=== PATIENT | female | born 1945 | race Hispanic/Latino ===

== ENCOUNTER → 2018-05-11 | Outpatient (CLI) | payer OTHER | END | disposition home or self-care (01) | LOC: RAH 08:37 | PROVIDERS: ATTEND Family Medicine | DX: Z12.31 Encounter for screening mammogram for malignant neoplasm of breast (principal) | CPT/HCPCS: 77067 ==

== ENCOUNTER → 2018-07-21 | Outpatient (CLI) | payer OTHER | END | disposition home or self-care (01) | LOC: RAH 13:46 | PROVIDERS: ATTEND Family Medicine | DX: R55 Syncope and collapse (principal) | CPT/HCPCS: 93880 ==

== ENCOUNTER → 2020-02-16 | Outpatient (CLI) | payer OTHER | END | disposition home or self-care (01) | LOC: RAH 08:28 | PROVIDERS: ATTEND Family Medicine | DX: Z12.31 Encounter for screening mammogram for malignant neoplasm of breast (principal) | CPT/HCPCS: 77067 ==

== ENCOUNTER → 2021-08-03 | Outpatient (CLI) | payer OTHER | END | disposition home or self-care (01) | LOC: RAH 11:20 | PROVIDERS: ATTEND Family Medicine | DX: Z12.31 Encounter for screening mammogram for malignant neoplasm of breast (principal) | CPT/HCPCS: 77067 ==

== ENCOUNTER → 2022-12-16 | Outpatient (CLI) | payer OTHER | END | disposition home or self-care (01) | LOC: RAH 11:34 | PROVIDERS: ATTEND Family Medicine | DX: Z12.31 Encounter for screening mammogram for malignant neoplasm of breast (principal) | CPT/HCPCS: 77067 ==

== ENCOUNTER → 2023-12-30 | Outpatient (CLI) | payer OTHER | END | disposition home or self-care (01) | LOC: RAH 10:37 | PROVIDERS: ATTEND Family Medicine | DX: Z12.31 Encounter for screening mammogram for malignant neoplasm of breast (principal); R92.333 Mammographic heterogeneous density, bilateral breasts | CPT/HCPCS: 77067 ==

== ENCOUNTER 2024-08-02 18:57 | Observation (INO) | payer OTHER ==
[~2024-08-02] VITALS: Ht 157.5 cm; Wt 54.1 kg
--- NOTE | 2024-08-02 19:46 | HMCIMG ---
Exam Type: CT HEAD/BRAIN W/O CONTRAST Clinical Information: ams Comparison: None CT Dose Index (CTDI): 57.33 mGy Dose Length Product (DLP): 956.79 total mGy-cm Findings: The examination shows atrophy. There is low attenuation throughout the periventricular white matter locations, consistent with chronic small vessel ischemic changes. No acute intra- or extra-axial fluid collections are seen. There is no evidence of acute or chronic hemorrhage. There is no mass effect or shift of midline structures. There are no areas to suggest acute infarct. The skull windows show no significant abnormalities. IMPRESSION: 1. ATROPHY AND CHRONIC SMALL VESSEL ISCHEMIC CHANGES. This study was performed using dose reduction techniques to include automated exposure control and/or adjustment of the mA and/or kV according to patient size.
--- NOTE | 2024-08-02 20:07 | HMCIMG ---
Exam Type: CHEST 1VW Clinical Information: cp Comparison: None Findings: The lungs are clear of infiltrates. The heart is normal in size. The bony and soft tissue structures of the chest are unremarkable. Impression: Clear lungs.
[2024-08-02] MEDS: 0.9%NACL 1000ML 1,000 ML IV ONE (20:09)
--- NOTE | 2024-08-02 20:33 | ERN ---
General Chief Complaint: Syncope Stated Complaint: SYNCOPAL EPISODE Time Seen by MD: 19:06 Time Seen by Midlevel: 19:06 Source: patient History of Present Illness Initial Comments The patient is a 78-year-old female with a past medical history of hypertension and hyperlipidemia presenting to the emergency department via EMS following a syncopal episode. Least syncopal episode occurred 90 minutes prior to arrival. According to who is at bedside the episode lasted approximately 30 minutes. After the patient regained consciousness she was confused. No seizure-like activities reported. No history of seizures is reported. On arrival the patient's main complaint is generalized body weakness. Allergies: Coded Allergies: No Known Drug Allergies (Unverified Allergy, Unknown, 08/02/24) Past Medical History Past Medical History: Arthritis, High Cholesterol, Hypertension Medical History Other: FAINTING SPELLS Past Surgical History: None ROS Dictation CONSTITUTIONAL: Negative except for HPI HEAD/FACE: Negative except for HPI EENT: Negative except for HPI RESPIRATORY: Negative except for HPI GASTROINTESTINAL/ABDOMINAL: Negative except for HPI GENITOURINARY: Negative except for HPI MUSCULOSKELETAL: Negative except for HPI INTEGUMENTARY: Negative except for HPI NEUROLOGICAL/PSYCH: Negative except for HPI HEMATOLOGIC/LYMPHATIC: Negative except for HPI All Systems Negative, Except as noted above. 13 point review of systems assessed and all negative except for above. Physical Exam Physical Exam Dictation Vital Signs reviewed General Appearance: Alert, oriented x 3, no acute distress, well developed, nourished. Head and Face: non-traumatic. Eyes: PERRL, pink conjunctivas, eyelid no trauma, anterior chamber with arcus senilis. Ears: Pinnas intact and no signs of trauma or erythema ear canals clear and no discharge TM no erythema Nose: No discharge, no bleeding. Oropharynx: Mouth normal, tongue pink, pharynx clear,no erythema, tonsils no exudates, no abscesses noted, mucous membrane moist Neck: Supple, non-tender, no thyromegaly, no masses, no JVD, no bruits Breast:Deferred Chest:No tenderness, no crepitus, no paradoxical movement, no retractions Lungs:Clear, well-ventilated, symmetric, no rales, no wheezing, no rhonchi, no stridor, good breath sounds bilaterally Heart: Regular rate, regular rhythm, no murmur, no gallops Vascular: no peripheral edema, Abdomen: Soft, positive bowel sounds, nondistended, no guarding, nontender, no rebound, no masses no hepatomegaly, no splenomegaly, no Everett's sign, no hernias. Rectal: Deferred Genital: Deferred Neurological: Normal speech, motor function intact, sensory function intact Musculoskeletal: Neck nontender, full range of motion, back nontender, full range of motion, Extremities: nontender, full range of motion Skin: Color pink, dry, no turgor, no rash, no lacerations, no abrasions, no contusions. Lymphatic: Deferred Results Laboratory and Microbiology Labs Reviewed?: Yes MDM MDM: Differential diagnosis: Syncope, ACS, intracranial bleed, seizure, dehydration Rationale: Tests considered and ordered secondary to shared decision making include: Previous outside records reviewed: Old ER visits. Risk of complication and/or morbidity or mortality of patient management: None Medications-Per medication reconciliation Need for hospitalization: Patient does meet criteria for hospitalization. Need for emergency major/minor surgery: No There are no social concerns with this patient. Prescription drug management Prescriptions will include symptomatic care Patient's prior external medical records from other ER visits were reviewed by me as indicated. Prior testing and results from previous visits were reviewed. Prior tests were taken into account with medical decision making and resource utilization, independent historian/historians were used to obtain complete medical history. I independently interpreted the test that were performed, results were reviewed by me and considered findings on radiology if ordered. Medical management and examination interpretation discussions were had by me with other qualified healthcare professionals as indicated for the patient's care. ED Course [place] [id number] [place] [id number] IMAGING REPORT Signed PATIENT: OSIRIS MARTIN MR#: [id number] : 1945 SEX: F AGE: 78 LOCATION: [facility] ORDER 09 STATUS: [facility] ER REPORT#: [id number] SERVICE 08 REASON: ams ORDERING PHYSICIAN: NEGRO MCFADDEN PROCEDURE: HEAD WO - CT HEAD/BRAIN W/O CONTRAST Exam Type: CT HEAD/BRAIN W/O CONTRAST Clinical Information: ams Comparison: None CT Dose Index (CTDI): 57.33 mGy Dose Length Product (DLP): 956.79 total mGy-cm Findings: The examination shows atrophy. There is low attenuation throughout the periventricular white matter locations, consistent with chronic small vessel ischemic changes. No acute intra- or extra-axial fluid collections are seen. There is no evidence of acute or chronic hemorrhage. There is no mass effect or shift of midline structures. There are no areas to suggest acute infarct. The skull windows show no significant abnormalities. IMPRESSION: 1. ATROPHY AND CHRONIC SMALL VESSEL ISCHEMIC CHANGES. This study was performed using dose reduction techniques to include automated exposure control and/or adjustment of the mA and/or kV according to patient size. DICTATED BY: ENEIDA BURKETT MD DATE: 08/02/241942 ELECTRONICALLY SIGNED BY: ENEIDA BURKETT MD DATE: 08/02/241945 [address] [address] IMAGING REPORT Signed PATIENT: OSIRIS MARTIN MR#: [id number] : 1945 SEX: F AGE: 78 LOCATION: [facility] ORDER 09 STATUS: [facility] REPORT#: [id number] SERVICE 08 REASON: cp ORDERING PHYSICIAN: NEGRO MCFADDEN PROCEDURE: CXR1VW - CHEST 1VW Exam Type: CHEST 1VW Clinical Information: cp Comparison: None Findings: The lungs are clear of infiltrates. The heart is normal in size. The bony and soft tissue structures of the chest are unremarkable. Impression: Clear lungs. DICTATED BY: ENEIDA BURKETT MD DATE: 08/02/242001 ELECTRONICALLY SIGNED BY: ENEIDA BURKETT MD DATE: 08/02/242006 DX & DISP Disposition: Inpatient Departure Impression: Primary Impression: Syncope and collapse Condition: Stable Referrals: ADRIAN ALMODOVAR MD (PCP) I have reviewed the case, and I agree with, Diagnosis and Plan I performed the substantive portion of the visit. I have reviewed and personally made and approve the management plan that is documented in the note by myself or the SIL. I acknowledge for responsibility for the patient's management plan. NEGRO MCFADDEN Aug 02, 2024 20:33
[2024-08-02 20:36] LABS: BASOPHILS # (AUTO) 0.02 K/uL (0.00-0.20); BASOPHILS % (AUTO) 0.2 % (0.0-5.0); EOSINOPHILS # (AUTO) 0.11 K/uL (0.00-0.70); HEMATOCRIT 39.4 % (36-48); IMMATURE GRANULOCYTE ABSOLUTE 0.03 K/uL (0-1); LYMPHOCYTES % (AUTO) 9.5 % (21.0-51.0); MEAN CORPUSCULAR HEMOGLOBIN 29.8 pg (27.0-33.0); MEAN CORPUSCULAR HGB CONC 32.5 g/dL (32.0-36.0); MEAN CORPUSCULAR VOLUME 91.8 fL (79-99); MONOCYTES # (AUTO) 0.8 K/uL (0.1-1.0); NEUTROPHILS # (AUTO) 8.8 K/uL (1.8-7.7); PLATELET COUNT (AUTO) 184 K/uL (130-400); RED BLOOD CELL COUNT(AUTO) 4.29 MIL/uL (4.00-5.50); RED CELL DISTRIBUTION WIDTH 12.8 % (11.0-15.5); WHITE BLOOD COUNT (AUTO) 10.7 K/uL (4.8-10.8)
[2024-08-02 20:41] LABS: POTASSIUM 3.9 mmol/L (3.5-5.1)
[2024-08-02 20:46] LABS: MAGNESIUM 2.1 mg/dL (1.80-2.40)
[2024-08-02 21:02] LABS: B-TYPE NATRIURETIC PEPTIDE 27 pg/mL (0-100)
--- NOTE | 2024-08-02 22:21 | HP ---
[facility] HISTORY & PHYSICAL Date Patient Seen: Aug 02, 2024 Time of Visit: 2315 Supervising Physician: [Dr. Hao Ribeiro ] Primary Care Physician: [Dr. Amara Uriarte] Outpatient Specialists: [ ] Inpatient Consults: [ ] PROBLEM LIST: Syncope and collapse-POA Rule-out new-onset seizure-POA Altered mental status, resolved-POA Possible dehydration-POA Prior HX of syncope with negative carotid US in 2019 Primary HTN HLD PLAN: -Admit to medsurg unit with telemetry -Obtain prolactin and EEG in am -Obtain head MRI, MRA head and neck in am -Neurochecks q4H -Obtain orthostatic vitals qshift -Obtain 2decho in am -Obtain TSH, lipid panel and HgA1c -IV fluids for hydration HPI: [Patient is a 78-year-old female with PMH significant for HTN, HLD and prior syncope who has presented to the ED via EMS concerning syncope and collapse with altered mental status. According to the patient, she spent a significant time spending time outdoor doing some cleaning chores and cleaning her son's kitchen which happens to be so hot. At around 6pm, her family was having some conversation at the patio and she was sitting on the chair when she suddenly passed-out. According to her , it took her 30 minutes before regaining her consciousness. The family attempted to wake her up shaking her arms and st imulating her to be awake but it was challenging at that time. Bedside RN reported that there was concern about a possible seizure due to presence of tremors. Patient never had seizure event but in 2019, there was an incident of syncopal episode with a negative carotid US result per prior EMR. ED work-up was unremarkable with head CT negative for acute intracranial abnormalities. P zulema is currently back on her baseline without focal neurologic deficits. Goals of care were discussed with the patient verbalizing understanding and agreement. ] PAST MEDICAL HX: see above PAST SURGICAL HX: noncontributory SOCIAL HISTORY: No tobacco, ETOH, or illicit drug use Coded Allergies: No Known Drug Allergies (Unverified Allergy, Unknown, 08/02/24) REVIEW OF SYSTEMS: 12 point ROS reviewed with patient. Pertinent positives mentioned above. Otherwise negative. PHYSICAL EXAM: GENERAL: alert, awake oriented x 3 HEENT: EOMI, Sclera non icteric, moist mucosa NECK: Supple, no JVD, trachea midline LUNGS: Clear breath sounds bilaterally. No wheezes HEART: Regular rate and rhythm. Normal S1 and S2, without murmurs ABD: Abdomen soft, nontender. Bowel sounds present EXT: No clubbing cyanosis or edema NEURO: Alert and oriented to person, follows commands Vital Signs (last 8hr) Date Time Temp Pulse Resp B/P (MAP) Pulse Ox O2 Delivery O2 Flow Rate FiO2 08/02/24 19:40 98.4 68 18 142/58 98 Room Air* 0 21 08/02/24 19:03 97.9 67 17 137/62 99 Room Air 0 LABS: Hematology Labs: Test 08/02/24 20:20 Range/Units White Blood Count 10.7 4.8-10.8 K/uL Red Blood Count 4.29 4.00-5.50 MIL/uL Hemoglobin 12.8 12.0-16.0 g/dL Hematocrit 39.4 36-48 % Mean Corpuscular Volume 91.8 79-99 fL Mean Corpuscular Hemoglobin 29.8 27.0-33.0 pg Mean Corpuscular Hemoglobin Concent 32.5 32.0-36.0 g/dL Red Cell Distribution Width 12.8 11.0-15.5 % Platelet Count 184 130-400 K/uL Mean Platelet Volume 12.2 H 7.5-10.5 fL Immature Granulocyte % (Auto) 0.3 0-1 % Neutrophils (%) (Auto) 82.0 H 40.0-77.0 % Lymphocytes (%) (Auto) 9.5 L 21.0-51.0 % Monocytes (%) (Auto) 7.0 3.0-13.0 % Eosinophils (%) (Auto) 1.0 0.0-8.0 % Basophils (%) (Auto) 0.2 0.0-5.0 % Neutrophils # (Auto) 8.8 H 1.8-7.7 K/uL Lymphocytes # (Auto) 1.0 1.0-4.8 K/uL Monocytes # (Auto) 0.8 0.1-1.0 K/uL Eosinophils # (Auto) 0.11 0.00-0.70 K/uL Basophils # (Auto) 0.02 0.00-0.20 K/uL Absolute Immature Granulocyte (auto 0.03 0-1 K/uL Nucleated Red Blood Cells 0.0 0.0-0.19 % White Cell Morphology Comment See comments Chemistry Labs: Test 08/02/24 20:20 Range/Units Sodium Level 142 136-145 mmol/L Potassium Level 3.9 3.5-5.1 mmol/L Chloride Level 105 101-111 mmol/L Carbon Dioxide Level 30 21-32 mmol/L Blood Urea Nitrogen 26 H 7-18 mg/dL Creatinine 1.0 0.5-1.0 mg/dL Glomerular Filtration Rate Calc 57 >90 mL/min Random Glucose 105 70-105 mg/dL Total Calcium 8.7 8.5-10.1 mg/dL Magnesium Level 2.10 1.80-2.40 mg/dL Ammonia 13 11-32 umol/L Total Creatine Kinase 45 21-232 U/L Troponin I High Sensitivity 8 4-50 ng/L B-Type Natriuretic Peptide 27 0-100 pg/mL DIAGNOSTICS / RADIOLOGY RESULTS: [ ] PLAN NEURO: Minimize central acting medications as possible. Maintain fall precautions, adequate lighting during the day PULMONARY: Supplemental 02 as needed. Maintain aspiration precautions at all times CARDIOVASCULAR: Follow hemodynamics. Vital signs per facility protocol GI & NUTRITION: Continue with nutritional support. Continue stool softeners and laxatives as needed. KIDNEYS & ELECTROLYTES: Strict monitoring of intake, output and overall fluid balance. Avoid nephrotoxic medications to the extent possible. Medications to be dosed according to renal function. Monitor electrolytes and replace as needed ENDOCRINE: Maintain blood glucose between 100-180 at all times. Hypoglycemia protocol in place INFECTIOUS DISEASE: Trend temperature, WBC and procalcitonin level Follow cultures, deescalate antibiotics as soon as possible. Panculture if new onset fever ONCOLOGY/HEMATOLOGY/COAGULATION: Monitor for s/s of bleeding Monitor hemoglobin, coagulation studies as needed SKIN: Pressure ulcer prevention per facility protocol Specialty mattress ORTHO/REHAB: Continue PT/OT Prophylaxis: Continue GI and DVT prophylaxis Code Status: Full Resuscitation Disposition: TBD Other: Total patient care time : 35 minutes CURTIS FLANAGAN Aug 02, 2024 22:21
[2024-08-02] MEDS ORDERED: hydrALAZine 20MG/ML VIAL IV PRN (22:30)
[2024-08-02] MEDS ORDERED: acetaMINOPHEN 325 MG TAB PO PRN (22:30)
[2024-08-02] MEDS ORDERED: ondanSETRON 4MG INJ IVP PRN (22:30)
[2024-08-02] MEDS ORDERED: LACTULOSE 20 GM/30 ML UDCUP PO PRN (22:30)
[2024-08-03 02:59] LABS: HEMOGLOBIN A1C 5.6 % (4.0-6.0)
[2024-08-03] MEDS: LACTATED RINGERS 1000ML 1,000 ML IV SCH (04:22)
[2024-08-03 07:13] LABS: BASOPHILS # (AUTO) 0.02 K/uL (0.00-0.20); BASOPHILS % (AUTO) 0.3 % (0.0-5.0); EOSINOPHILS # (AUTO) 0.33 K/uL (0.00-0.70); EOSINOPHILS % (AUTO) 4.2 % (0.0-8.0); HEMATOCRIT 39.8 % (36-48); IMMATURE GRANULOCYTE ABSOLUTE 0.01 K/uL (0-1); LYMPHOCYTES # (AUTO) 1.7 K/uL (1.0-4.8); LYMPHOCYTES % (AUTO) 21.5 % (21.0-51.0); MEAN CORPUSCULAR HGB CONC 32.4 g/dL (32.0-36.0); MEAN CORPUSCULAR VOLUME 92.6 fL (79-99); MONOCYTES # (AUTO) 0.6 K/uL (0.1-1.0); MONOCYTES % (AUTO) 7.7 % (3.0-13.0); NEUTROPHILS # (AUTO) 5.1 K/uL (1.8-7.7); NEUTROPHILS % (AUTO) 66.2 % (40.0-77.0); PLATELET COUNT (AUTO) 197 K/uL (130-400); RED CELL DISTRIBUTION WIDTH 12.9 % (11.0-15.5); WHITE BLOOD COUNT (AUTO) 7.8 K/uL (4.8-10.8)
[2024-08-03 07:36] LABS: CREATININE 0.6 mg/dL (0.5-1.0); MAGNESIUM 2.1 mg/dL (1.80-2.40); PHOSPHORUS 3.5 mg/dL (2.5-4.9); THYROID STIMULATING HORMONE 2.83 uIU/mL (0.36-3.74)
--- NOTE | 2024-08-03 08:22 | EKG ---
[facility] Test Date: 2024-08-02 Test Time: 19:22:36 Pat Name: OSIRIS MARTIN Department: [facility] Room: ED Gender: Female Typewriter Tester: [id number] : 1945 Requested By: NEGRO MCFADDEN Order Number: [id number] Reading MD: Measurements Intervals [place] Rate: 70 P: 42 OK: 136 QRS: -18 QRSD: 82 T: 48 QT: 413 QTc: 445 Interpretive Statements Sinus rhythm No previous ECG available for comparison Please click the below link to view image of tracing.
[2024-08-03] MEDS: PANTOPrazole 40 MG TAB DR PO SCH (08:23)
[2024-08-03] MEDS: ENOXAPARIN SODIUM 30 MG/0.3 ML SQ SCH (08:24)
[2024-08-03] MEDS ORDERED: ASPI-1443 PO (08:32)
[2024-08-03] MEDS ORDERED: ROSU40TA88 PO (08:32)
[2024-08-03] MEDS ORDERED: LOSA100T59 PO (08:32)
--- NOTE | 2024-08-03 11:21 | HMCIMG ---
MR ANGIO HEAD, WO CON HISTORY: Syncope and collapse COMPARISON: None TECHNIQUE: MRA of the brain was performed using three-dimensional [id number] angiographic techniques without intravenous contrast administration. FINDINGS: No MR evidence of cerebral aneurysm or abnormal arteriovenous communication is seen. There is hypoplastic right A1 segment. Diffuse atherosclerosis changes are present. Vertebrobasilar arterial system is grossly within normal limits. IMPRESSION: 1. Atherosclerotic disease. Otherwise unremarkable MRA of the brain.
--- NOTE | 2024-08-03 11:24 | HMCIMG ---
MR BRAIN WO CON HISTORY: Syncope and collapse COMPARISON: None TECHNIQUE: MRI of the brain was performed utilizing multiple pulse sequences in axial, coronal and sagittal planes. Patient was not given contrast through intravenous route. FINDINGS: The ventricles and extraventricular CSF spaces are dilated consistent with cerebral atrophy. Nonspecific white matter changes are seen. There is no midline shift, mass effect or herniation. No subacute hemorrhage is seen. No MR evidence of acute infarct is seen in the diffusion weighted images. Cerebellar tonsils are in normal position. No evidence of mucoperiosteal thickening is seen of the visualized paranasal sinuses. No MR evidence of a mass lesion is seen in this noncontrast study. IMPRESSION: 1. No MR evidence of acute infarct is seen in the diffusion weighted images. Atrophy with white matter changes.
--- NOTE | 2024-08-03 11:41 | NUR ---
DCP: HOME Pt lives at home with her Benedict [place] [phone]. Pt reports that she remains able o complete her ADLS on her own. She has a cane she uses as needed when knee pain is bad. No HH or HD. transports her as needed o see her PCP Amara Uriarte and uses [facility] for her rx. Ptt denies dc needs and will return home at dc Addendum: 08/03/24 at 1145 by FELIPE GUERRA SS Amended: Links added.
[2024-08-03 12:05] LABS: APPEARANCE,URINE CLEAR (CLEAR); BILIRUBIN,URINE NEGATIVE (NEGATIVE); COLOR,URINE LIGHT-YELLOW (YELLOW); GLUCOSE, URINE (UA) NEGATIVE (NEGATIVE); KETONES,URINE NEGATIVE (NEGATIVE); LEUKOCYTE ESTERASE ,URINE 25 Leu/uL (NEGATIVE); NITRATE,URINE NEGATIVE (NEGATIVE); OCCULT BLOOD,URINE NEGATIVE (NEGATIVE); PH,URINE 6.5 (5.0-8.0); PROTEIN,URINE NEGATIVE (NEGATIVE); UROBILINOGEN,URINE 0.2 mg/dL (0.2-1.0)
[2024-08-03 12:08] LABS: ADD UA MICROSCOPIC YES
[2024-08-03 12:09] LABS: MUCUS,URINE RARE LPF (None Seen); SQUAMOUS EPITHELIAL CELL,UR RARE /HPF (0-2)
[2024-08-03 12:13] LABS: AMPHET/METH SCREEN,URINE NEGATIVE (NEGATIVE); BARBITURATE SCREEN, URINE NEGATIVE (NEGATIVE); BENZODIAZEPINES SCREEN,URINE NEGATIVE (NEGATIVE); CANNABINOID SCREEN,URINE NEGATIVE (NEGATIVE); COCAINE SCREEN,URINE NEGATIVE (NEGATIVE); OPIATE SCREEN,URINE NEGATIVE (NEGATIVE); PHENCYCLIDINE SCREEN,URINE NEGATIVE (NEGATIVE)
[2024-08-03] MEDS ORDERED: GADOTERATE MEGLUMINE 10 MMOL/20 ML VIAL IV ONE (13:57)
--- NOTE | 2024-08-03 14:22 | PN ---
[facility] PROGRESS NOTE Date Patient Seen: Aug 03, 2024 Time of Visit: 14:22 Supervising Physician: [Dr. Leiva] Primary Care Physician: [Dr. Amara Uriarte] Outpatient Specialists: [ ] Inpatient Consults: [ ] PROBLEM LIST: Syncope and collapse-POA Rule-out new-onset seizure-POA Acute dehydration-POA Acute kidney injury Prior HX of syncope with negative carotid US in 2019 Primary HTN HLD PLAN: Start rocephin, follow urine culture Pending EEG Head MRI, MRA head and neck unremarkable -Neurochecks q4H -Obtain orthostatic vitals qshift -Pending 2decho -IV fluids for hydration DC home once medically cleared INTERVAL HISTORY: [ Patient was evaluated at bedside with family present. She is feeling improved from admission. Labs including CBC and BNP are within normal limits. ALBA has resolved with IVF. TSH and lipids are unremarkable. Imaging studies including MRI/MRA are within normal limits. UA shows small leukocyte esterase, pending urine culture. Patient states she was helping her son clean his house and was very hot indoors. She then went outside to rest in the patio and while speaking to her son she experienced a brief episode of loss of consciousness with syncope. States she has had this happen once or twice in the past, without official diagnosis of stroke or TIA. She had otherwise been in relatively good health and only takes medication for cholesterol and blood pressure. She was found to be in acute dehydration on admission and has received IV fluids. She denies any headache, blurry vision, chest pain, palpitations or other related symptoms at this time.] REVIEW OF SYSTEMS: 12 point ROS reviewed with patient. Pertinent positives mentioned above. Otherwise negative. PHYSICAL EXAM: GENERAL: alert, awake oriented x 3 HEENT: EOMI, Sclera non icteric, moist mucosa NECK: Supple, no JVD, trachea midline LUNGS: Clear breath sounds bilaterally. No wheezes HEART: Regular rate and rhythm. Normal S1 and S2, without murmurs ABD: Abdomen soft, nontender. Bowel sounds present EXT: No clubbing cyanosis or edema NEURO: Alert and oriented to person, follows commands Vital Signs (last 8hr) Date Time Temp Pulse Resp B/P (MAP) Pulse Ox O2 Delivery O2 Flow Rate FiO2 08/03/24 14:18 98.4 63 18 162/83 98 Room Air* 0 21 08/03/24 11:56 98.4 60 16 147/64 98 Room Air* 0 21 08/03/24 07:50 98.1 65 18 150/63 98 Room Air* 0 21 LABS: Hematology Labs: Test 08/03/24 06:59 08/02/24 20:20 Range/Units White Blood Count 7.8 # 4.8-10.8 K/uL Red Blood Count 4.30 4.00-5.50 MIL/uL Hemoglobin 12.9 12.0-16.0 g/dL Hematocrit 39.8 36-48 % Mean Corpuscular Volume 92.6 79-99 fL Mean Corpuscular Hemoglobin 30.0 27.0-33.0 pg Mean Corpuscular Hemoglobin Concent 32.4 32.0-36.0 g/dL Red Cell Distribution Width 12.9 11.0-15.5 % Platelet Count 197 130-400 K/uL Mean Platelet Volume 12.1 H 7.5-10.5 fL Immature Granulocyte % (Auto) 0.1 0-1 % Neutrophils (%) (Auto) 66.2 40.0-77.0 % Lymphocytes (%) (Auto) 21.5 21.0-51.0 % Monocytes (%) (Auto) 7.7 3.0-13.0 % Eosinophils (%) (Auto) 4.2 0.0-8.0 % Basophils (%) (Auto) 0.3 0.0-5.0 % Neutrophils # (Auto) 5.1 1.8-7.7 K/uL Lymphocytes # (Auto) 1.7 1.0-4.8 K/uL Monocytes # (Auto) 0.6 0.1-1.0 K/uL Eosinophils # (Auto) 0.33 0.00-0.70 K/uL Basophils # (Auto) 0.02 0.00-0.20 K/uL Absolute Immature Granulocyte (auto 0.01 0-1 K/uL Nucleated Red Blood Cells 0.0 0.0-0.19 % White Cell Morphology Comment See comments Chemistry Labs: Test 08/03/24 06:59 08/02/24 20:20 Range/Units Sodium Level 143 136-145 mmol/L Potassium Level 4.0 3.5-5.1 mmol/L Chloride Level 107 101-111 mmol/L Carbon Dioxide Level 29 21-32 mmol/L Blood Urea Nitrogen 20 H 7-18 mg/dL Creatinine 0.6 0.5-1.0 mg/dL Glomerular Filtration Rate Calc 91 >90 mL/min Random Glucose 97 70-105 mg/dL Total Calcium 8.6 8.5-10.1 mg/dL Phosphorus Level 3.5 2.5-4.9 mg/dL Magnesium Level 2.10 1.80-2.40 mg/dL Triglycerides Level 112 30-200 mg/dL Cholesterol Level 139 <200 mg/dL LDL Cholesterol 65 0-99 mg/dL HDL Cholesterol 59 35-85 mg/dL Thyroid Stimulating Hormone (TSH) 2.83 0.36-3.74 uIU/mL Hemoglobin A1c 5.6 4.0-6.0 % Estimated Average Glucose (eAG) 114 70-126 mg/dL Ammonia 13 11-32 umol/L Total Creatine Kinase 45 21-232 U/L Troponin I High Sensitivity 8 4-50 ng/L B-Type Natriuretic Peptide 27 0-100 pg/mL DIAGNOSTICS / RADIOLOGY RESULTS: [ ] PLAN NEURO: Minimize central acting medications as possible. Maintain fall precautions, adequate lighting during the day PULMONARY: Supplemental 02 as needed. Maintain aspiration precautions at all times CARDIOVASCULAR: Follow hemodynamics. Vital signs per facility protocol GI & NUTRITION: Continue with nutritional support. Continue stool softeners and laxatives as needed. KIDNEYS & ELECTROLYTES: Strict monitoring of intake, output and overall fluid balance. Avoid nephrotoxic medications to the extent possible. Medications to be dosed according to renal function. Monitor electrolytes and replace as needed ENDOCRINE: Maintain blood glucose between 100-180 at all times. Hypoglycemia protocol in place INFECTIOUS DISEASE: Trend temperature, WBC and procalcitonin level Follow cultures, deescalate antibiotics as soon as possible. Panculture if new onset fever ONCOLOGY/HEMATOLOGY/COAGULATION: Monitor for s/s of bleeding Monitor hemoglobin, coagulation studies as needed SKIN: Pressure ulcer prevention per facility protocol Specialty mattress ORTHO/REHAB: Continue PT/OT Prophylaxis: Continue GI and DVT prophylaxis Code Status: Full Resuscitation Disposition: TBD Other: Total patient care time : 35 minutes KE RIVERS Aug 03, 2024 14:22
--- NOTE | 2024-08-03 14:51 | HMCIMG ---
MR ANGIO NECK W/WO CON HISTORY: Syncope COMPARISON: None TECHNIQUE: MR angiography of the neck was performed using rbvr-[id number] angiographic techniques. Patient was given 12 cc of Clariscan through intravenous route. FINDINGS: The common, internal and external carotid arteries are visualized. No hemodynamically significant lesion is seen of either extracranial carotid artery system. Both vertebral arteries are seen with antegrade flow. IMPRESSION: 1. Atherosclerotic disease. No hemodynamically significant lesion is seen of either extracranial carotid artery system.
--- NOTE | 2024-08-03 17:57 | NUR ---
INFORMED PAM RESP TECH IN THE MORNING AT 0800 PT IS DUE FOR A EEG, STATED RESP MARTÍNEZT TAJ IS AWARE WILL GO IT TODAY.
--- NOTE | 2024-08-03 18:02 | NUR ---
SPEECH TRIGGER COMPLETED. Pt IS A 78 Y.O. FEMALE ADMITTED SECONDARY TO SYNCOPE. Pt HAS A PAST MEDICAL HISTORY SIGNIFICANT FOR HYPERTENSION AND HLD. PATIENT PRESENTED WITH NO PULMONARY INFILTRATES ON MOST RECENT CHEST X-RAY (08/02/2024). Pt CURRENTLY ON HEART HEALTHY DIET (REGULAR TEXTURE AND THIN LIQUIDS). PER NURSE GEE, Pt TOLERATING DIET WITH NO OVERT S/S OF ASPIRATION. PLEASE REQUEST SPEECH THERAPY SERVICES FOR SKILLED BEDSIDE SWALLOW EVALUATION IF Pt PRESENTS WITH +S/S OF ASPIRATION SUCH COUGH RESPONSE, THROAT CLEAR, OR WET VOCAL QUALITY DURING ORAL INTAKE. ALL QUESTIONS ANSWERED AT THIS TIME. Addendum: 08/03/[address] NE[facility]ON Amended: Links added.
[2024-08-03 18:40] VITALS: BP 129/74; PULSE 69; RESP 18; TEMP 98
--- NOTE | 2024-08-03 19:10 | HMCSR ---
APPROVED REPORT EXAM: Two-dimensional and M-mode echocardiogram with Doppler and color Doppler. INDICATION ICD: Syncope R55 2D Dimensions RVDd3.1 cmLVEF(%)60.1 (>50%)LVEF(%, simp.)68 % IVSd0.9 (0.7-1.1cm)FS(%)32 % LVDd4.0 (3.8-5.6cm)LA (2D)4.0 (1.6-4.0cm) PWd1.1 (0.7-1.1cm)Ao Root(2D)2.7 (2.0-3.7cm) IVSs1.0 cmLVOT diam1.7 (1.8-2.4cm) LVDs2.8 (2.5-4.0cm)IVC diam1.3 cm PWs1.2 cm Deformation Strain Apical 4-19.0 % Apical 2-21.0 % Apical 3-17.0 % Global Strain-19.0 % M-Mode Dimensions EPSS0.5 cm LA (MM)4.1 (1.6-4.0cm) Ao Root(MM)2.5 (2.0-3.7cm) Aortic Valve AoV Vmax1.5 m/Chelsi Peak GR8.8 mmHgLVOT Vmax1.1 m/s AoV VTI0.4 mAo Mean GR4.9 mmHgLVOT VTI0.28 m DWAIN (VMAX)1.8 cm2AVA (VTI) 1.8 cm2 Mitral Valve MV E Vmax90.1 cm/sDECEL Akco969 ms MV A Yroi434.3 cm/sP 1/2 T54 ms E/A ratio0.8MVA (PHT)4.0 cm2 TDI E/E' Jqqwng62.0E/E' Wawmijt67.9 Medial E' Peak V6.00 cm/sLateral E' Peak V7.00 cm/s Pulmonary Valve PV Vmax0.9 m/s Tricuspid Valve TR Vmax2.5 m/sRAP (EST) 3 wcYvTFKO76.6 mmHg TR Peak GR26.6 mmHg Left Ventricle The left ventricle is normal size. GLS -19.0% There is normal left ventricular wall thickness. LVEF is 65-70%. The left ventricular diastolic function is normal. Right Ventricle The right ventricle is normal size. The right ventricular systolic function is normal. Atria The left atrium size is normal. The right atrium size is normal. Aortic Valve The aortic valve is normal in structure. No aortic regurgitation is present. There is no aortic valvu lar stenosis. Mitral Valve The mitral valve is normal in structure. There is mild mitral valve regurgitation noted. There is no mitral valve stenosis. Tricuspid Valve The tricuspid valve is normal in structure. There is trace of tricuspid valve regurgitation noted. Pulmonic Valve The pulmonary valve is normal in structure. There is mild pulmonic valvular regurgitation. Great Vessels The aortic root is normal in size. The IVC is normal in size and collapses >50% with inspiration. Pericardium There is no pericardial effusion. Other Information Quality : Adequate Conclusion The left ventricle is normal size. LVEF is 65-70%. The left ventricular diastolic function is normal. The right ventricle is normal size. The right ventricular systolic function is normal. The left atrium size is normal. The right atrium size is normal. There is mild mitral valve regurgitation noted. There is no pericardial effusion.
[2024-08-03 20:00] VITALS: BP 138/63; PULSE 63; RESP 16; TEMP 98.1
[2024-08-04] VITALS (10 sets, daily range): BP systolic 123–162; BP diastolic 56–83; PULSE 62–83; RESP 16–18; TEMP 98–98.7; O2SAT 97
[2024-08-04] MEDS: CEFTRIAXONE 2GM VIAL IVPB SCH (03:27)
--- NOTE | 2024-08-04 08:52 | PRN ---
[place] EEG Note # Demographics Type of EEG Read: - Routine EEG - without video Patient Location: Inpatient First Name: OSIRIS Last Name: MARIO Date of : 1945 Age: 78 Gender: Female Facility: [facility] Time of Initial Page (Central Time): 08/03/2024 21:01 Time of Return Call (Central Time): 08/03/2024 21:01 # EEG Interpretation Start Time of EEG Read (Central Time): 08/03/2024 20:07 Stop Time of EEG Read (Central Time): 08/03/2024 20:32 Duration: 0h 25m Technical Details: - The EEG electrodes were placed using the standard International 10-20 system of electrode placement. An accessory EKG lead was used during the course of this study. - This study was recorded using the [employer]apping (SAM) EEG software Indication: - syncope # Description Photic Stimulation: Performed Hyperventilation: NOT performed Phases Captured: - awake - sleep Symmetry: symmetric Posterior Dominant Rhythm: - present, attenuates on eye opening 9 Hz Predominant Frequencies: - posterior dominant alpha (8-12 Hz) - abundant (50-89%) Superimposed Frequencies: - non-posterior dominant alpha (8-12 Hz) - abundant (50-89%) EKG: NSR # Abnormalities Stimulation: - photic stimulation does NOT cause abnormalities Epileptiform Abnormalities: - NOT present Focal Slowing: no Seizure: - NOT present # Impression Impression: normal # Clinical Correlation Clinical Correlation: A normal EEG does not exclude nor support the diagnosis of epilepsy. # Logistics Telemedicine: remote EEG review: EEG reviewed remotely # Demographics First Name: OSIRIS Last Name: MARIO Facility: [facility] KAMAR MADRIGAL MD Aug 04, 2024 08:52
--- NOTE | 2024-08-04 12:23 | DS ---
[facility] DISCHARGE SUMMARY Date Patient Seen: Aug 04, 2024 Time of Visit: 12:23 Supervising Physician: [Dr. Leiva] Primary Care Physician: [Dr. Amara Uriarte] Outpatient Specialists: [ ] Inpatient Consults: [ ] PROBLEM LIST: Syncope and collapse-POA Rule-out new-onset seizure-POA Acute dehydration-POA Acute kidney injury Prior HX of syncope with negative carotid US in 2019 Primary HTN HLD PLAN: Repeat UA with PCP outpatient Start rocephin, follow urine culture Pending EEG Head MRI, MRA head and neck unremarkable -Neurochecks q4H -Obtain orthostatic vitals qshift -Pending 2decho -IV fluids for hydration DC home once medically cleared HOSPITAL COURSE: HPI (per admitting provider) Patient is a 78-year-old female with PMH significant for HTN, HLD and prior syncope who has presented to the ED via EMS concerning syncope and collapse with altered mental status. According to the patient, she spent a significant time spending time outdoor doing some cleaning chores and cleaning her son's kitchen which happens to be so hot. At around 6pm, her family was having some conversation at the patio and she was sitting on the chair when she suddenly passed-out. According to her , it took her 30 minutes before regaining her consciousness. The family attempted to wake her up shaking her arms and stimulating her to be awake but it was challenging at that time. Bedside RN reported that there was concern about a possible seizure due to presence of tremors. Patient never had seizure event but in 2019, there was an incident of syncopal episode with a negative carotid US result per prior EMR. ED work-up was unremarkable with head CT negative for acute intracranial abnormalities. Patient is currently back on her baseline without focal neurologic deficits. Goals of care were discussed with the patient verbalizing understanding and agreement. 08/03 Patient was evaluated at bedside with family present. She is feeling improved from admission. Labs including CBC and BNP are within normal limits. ALBA has resolved with IVF. TSH and lipids are unremarkable. Imaging studies including MRI/MRA are within normal limits. UA shows small leukocyte esterase, pending urine culture. Patient states she was helping her son clean his house and was very hot indoors. She then went outside to rest in the patio and while speaking to her son she experienced a brief episode of loss of consciousness with syncope. States she has had this happen once or twice in the past, without official diagnosis of stroke or TIA. She had otherwise been in relatively good health and only takes medication for cholesterol and blood pressure. She was found to be in acute dehydration on admission and has received IV fluids. She denies any headache, blurry vision, chest pain, palpitations or other related symptoms at this time. 08/04 patient's labs and vitals remained within normal limits. Her EEG was negative for any seizure activity. Her echocardiogram was within normal limits with an EF of 65-70%, no valvulopathy. Patient reports feeling improved back to baseline. Her ALBA has resolved with IV fluids. Patient denies any chest pain, chest discomfort, dizziness, or other related symptoms. She verbalized understanding. She denied any dysuria, discharge, lower abdominal pain, low back pain, nausea or vomiting. She was advised to follow up with her PCP for repeat UA and treat as necessary in outpatient setting. No indication for antibiotics upon discharge. 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 PCP notified of patients admission, hospital course and discharge. Continued Medications: Aspirin (Aspirin EC) 81 Mg Tablet.dr 81 MG PO HS, TAB Losartan Potassium (Losartan Potassium) 100 Mg Tablet 100 MG PO HS, TAB Rosuvastatin Calcium (Rosuvastatin Calcium) 40 Mg Tablet 40 MG PO HS, TAB PHYSICAL EXAM: GENERAL: alert, awake oriented x 3 HEENT: EOMI, Sclera non icteric, moist mucosa NECK: Supple, no JVD, trachea midline LUNGS: Clear breath sounds bilaterally. No wheezes HEART: Regular rate and rhythm. Normal S1 and S2, without murmurs ABD: Abdomen soft, nontender. Bowel sounds present EXT: No clubbing cyanosis or edema NEURO: Alert and oriented to person, follows commands FOLLOW-UP: Follow-up with PCP upon discharge for repeat UA, and treated as indicated. Continue all medications as previously prescribed. RECOMMENDATIONS: See Discharge Instructions This case was seen and discussed with my supervising physician. More than 30 minutes spent on discharge process, including evaluation of the patient, discussion with nursing staff, medication reconciliation and follow-up appointments KE RIVERS Aug 04, 2024 12:23
--- NOTE | 2024-08-04 14:14 | NUR ---
D/C INSTRUCTIONS GIVEN AND ACKNOWLEDGED. IV REMOVED
== END 2024-08-04 15:30 | disposition home or self-care (01) ==
LOC: EDH 18:57 → UNDOADMOB 18:58 → EDHIP 18:58 → 3BH 08-03 18:31
PROVIDERS: ADMIT Internal Medicine; ATTEND Internal Medicine
DX: R55 Syncope and collapse (principal); E86.0 Dehydration; N17.9 Acute kidney failure, unspecified; I10 Essential (primary) hypertension; E78.5 Hyperlipidemia, unspecified; R41.82 Altered mental status, unspecified; Z79.899 Other long term (current) drug therapy
CPT/HCPCS: 96361 ×3; 99285; 83036; 82550; 83735 ×2; 84484; 80048 ×2; 83880; 82140; 85025 ×2; 84146; 36415 ×2; 71045; 70450; 93005; 96372 ×2; 81001; 70544; 84443; 84100; 80061; 80305; 87086; 93306; 93356; 70551; 70549; 95819; 96365; G0378 ×38; J1650 ×2; A9575; J0696